=== PATIENT | male | born 1980 | race Caucasian/White ===

== ENCOUNTER 2017-12-06 12:59 | Emergency (ER) | payer MEDICAID ==
[~2017-12-06] VITALS: Ht 170.2 cm; Wt 72.5 kg
[2017-12-06 13:04] VITALS: BP 165/95
== END 2017-12-06 13:36 | disposition home or self-care (01) ==
LOC: ED 13:10
DX: S91.011D Laceration without foreign body, right ankle, subsequent encounter (principal); X58.XXXD Exposure to other specified factors, subsequent encounter
CPT/HCPCS: 99282